=== PATIENT | male | born 1965 | race Two or more races ===

== ENCOUNTER 2020-08-26 11:15 | Outpatient (CLI) | payer OTHER | END 2020-08-26 11:44 | disposition home or self-care (01) | LOC: LAB 11:15 | PROVIDERS: ATTEND General Practice | DX: R05 Cough (principal); R50.9 Fever, unspecified; R06.02 Shortness of breath; Z03.818 Encounter for observation for suspected exposure to other biological agents ruled out ==

== ENCOUNTER 2025-05-18 10:16 | Emergency (ER) | payer OTHER ==
[~2025-05-18] VITALS: Ht 167.6 cm; Wt 70.3 kg
[2025-05-18 10:39] VITALS: BP 131/70; O2SAT 99
[2025-05-18] MEDS ORDERED: DIPHENHYDRAMINE HCL 50 MG/ML VIAL 1ML ONE (11:05)
[2025-05-18] MEDS ORDERED: DEXAMETHASONE SODIUM PHOSPHATE 4 MG/ML VIAL ONE ×2 (11:05→11:08)
[2025-05-18] MEDS ORDERED: DIPHENHYDRAMINE HCL 12.5 MG/5 ML BLIST.PACK PO ONE (11:09)
[2025-05-18] MEDS ORDERED: DIPHENHYDRAMINE HCL 25 MG CAPSULE PO ONE (11:15)
[2025-05-18] MEDS ORDERED: FLUCONAZOLE 150 MG TABLET PO ONE (11:15)
[2025-05-18] MEDS ORDERED: DEXAMETHASONE SODIUM PHOSPHATE 4 MG/ML VIAL IM ONE (11:15)
== END 2025-05-18 11:38 | disposition home or self-care (01) ==
LOC: ER 10:16
DX: B35.6 Tinea cruris (principal); R21 Rash and other nonspecific skin eruption; I10 Essential (primary) hypertension